=== PATIENT | male | born 1945 | race Caucasian/White ===

== ENCOUNTER → 2016-11-25 | Outpatient (CLI) | payer OTHER ==
--- NOTE | 2016-11-25 14:37 | Diagnostic Imaging Report ---
PA and lateral views of the chest. INDICATION: Cough and shortness of breath. FINDINGS: There are calcified granulomas in the left lung base. There is mild interstitial thickening which appears chronic. No prior studies are available for comparison however. No significant airspace consolidation. The heart size is at the upper limits of normal. No effusion or pneumothorax. The mediastinum and sudarshan appear unremarkable. IMPRESSION: Interstitial prominence probably chronic. Dictated by: Dictated on workstation # [id number]
== END ==
LOC: RAD 13:40
PROVIDERS: ATTEND Physician Assistant Medical
DX: R05 Cough (principal); R06.02 Shortness of breath; R63.4 Abnormal weight loss
CPT/HCPCS: 71020

== ENCOUNTER → 2017-09-22 | Outpatient (CLI) | payer OTHER ==
--- NOTE | 2017-09-23 15:36 | RADIOLOGY REPORT ---
NAME: IMANI LAMBERT [facility] REC#: [id number] PT STATUS: REG CLI : 1945 PHYSICIAN: ROBERTA BLANCO APRN ADMIT DATE: 09/22/17/RAD CORRECTED Signed Date of Exam:09/22/17 RIGHT LOW EXT [id number] INDICATION: Claudication. Abnormal BAKARI. FINDINGS: There is dense diffuse atherosclerotic disease present from the common femoral artery distally. There is occlusion of the superficial femoral artery proximally. There is reconstitution via profunda femoral collaterals. The profundus femoral is diseased as well. There is minimal antegrade flow is noted in the distal superficial femoral artery. Popliteal artery is patent. Posterior tibial artery is patent distally with very dampened monophasic flow. Peak velocity of the posterior tibial is 19 cm/s with dorsalis pedis showing peak velocity of 11 cm/s. IMPRESSION: Severe diffuse atherosclerotic disease. 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 There is reconstitution at the popliteal level with trifurcation vessels patent at the ankle though showing very dampened monophasic flow. Dictated by: Dictated on workstation # [id number] Dict: 09/23/17 0750 Trans: 09/23/17 1144 [facility] [id number] Interpreted by: KAVON WILLIS MD Electronically signed by: KAVON WILLIS MD 09/23/17 1144 [facility]
== END ==
LOC: RAD 13:38
PROVIDERS: ATTEND Nurse Practitioner
DX: I70.201 Unspecified atherosclerosis of native arteries of extremities, right leg (principal); R94.39 Abnormal result of other cardiovascular function study
CPT/HCPCS: 93926

== ENCOUNTER 2018-07-07 09:47 | Outpatient (RCR) | payer OTHER | END 2018-08-02 09:18 | disposition home or self-care (01) | PROVIDERS: ATTEND Nurse Practitioner Adult Health | DX: S88.92 Partial traumatic amputation of lower leg, level unspecified (principal) ==